=== PATIENT | male | born 1985 | race Two or more races ===

== ENCOUNTER 2023-09-10 20:32 | Inpatient (IN) | payer OTHER ==
[~2023-09-10] VITALS: Ht 175.3 cm; Wt 83.3 kg
[2023-09-10 22:26] LABS: BASOPHILS % (AUTO) 0.7 % (0.0-2.0); HEMATOCRIT 32.6 % (41-53); HEMOGLOBIN 11.1 g/dL (13.5-17.5); LYMPHOCYTES # (AUTO) 1.7 K/uL (1.0-4.8); LYMPHOCYTES % (AUTO) 44.4 % (22.0-44.0); MEAN CORPUSCULAR HEMOGLOBIN 32.1 pg (26.0-34.0); MEAN CORPUSCULAR HGB CONC 34.2 G/dL (31.0-37.0); MEAN CORPUSCULAR VOLUME 94 fL (80-100); MONOCYTES # (AUTO) 0.3 K/uL (0.1-1.0); MONOCYTES % (AUTO) 7.8 % (2.0-9.0); NEUTROPHILS # (AUTO) 1.7 K/uL (1.8-7.7); NEUTROPHILS % (AUTO) 43.1 % (40.0-70.0); PLATELET COUNT (AUTO) 163 K/uL (150-450); RED BLOOD CELL COUNT(AUTO) 3.47 MIL/uL (4.50-5.90); RED CELL DISTRIBUTION WIDTH 13.3 % (11.5-14.5); WHITE BLOOD COUNT (AUTO) 3.9 K/uL (4.5-11.0)
[2023-09-10] MEDS: ACTIVATED CHARCOAL 50 GM/240 ML SUSPENSION PO ONE (22:37)
[2023-09-10 22:43] LABS: ANION GAP 8 mmol/L (8-16); CALCIUM, TOTAL 9.3 mg/dL (8.8-10.5); CARBON DIOXIDE 29 mmol/L (22-29); CHLORIDE 102 mmol/L (98-107); CREATININE 0.89 mg/dL (0.60-1.30); GLOMERULAR FILTR. RATE CALC > 60 mL/min (>60); GLUCOSE,RANDOM 73 mg/dL (70-110); POTASSIUM 4.1 mmol/L (3.5-5.1); SODIUM SERUM 139 mmol/L (136-145); UREA NITROGEN, BLOOD 19 mg/dL (7-18)
[2023-09-10 22:49] LABS: ALANINE AMINOTRANSFERASE 23 U/L (12-78); ALBUMIN 3.5 g/dL (3.4-5.0); ALKALINE PHOSPHATASE 51 U/L (46-116); ASPARTATE AMINOTRANSFERASE 18 U/L (15-37); BILIRUBIN,TOTAL 0.3 mg/dL (0.1-1.0); TOTAL PROTEIN, SERUM 6.7 g/dL (6.4-8.2)
[2023-09-10 22:52] LABS: ACETAMINOPHEN < 10 mcg/mL (10-30)
[2023-09-10 23:00] LABS: ALCOHOL, BLOOD (SERUM) < 3 mg/dL (0-10)
[2023-09-10 23:05] LABS: SALICYLATE 0.8 mg/dL (2.8-20.0)
[2023-09-11] MEDS ORDERED: ONDANSETRON HCL 4 MG/2 ML VIAL IVP PRN (01:00)
[2023-09-11 02:16] LABS: COVID AG,FIA SOURCE NASAL SWAB
[2023-09-11 02:44] LABS: SARS-COV2 (COVID) ANTIGEN,FIA Negative (Negative)
[2023-09-11] MEDS: SODIUM CHLORIDE 0.9% 1,000 ML IV SCH (02:48)
[2023-09-11 03:52] VITALS: BP 100/64; PULSE 49; RESP 18; TEMP 97.7
[2023-09-11 07:55] VITALS: BP 103/58; PULSE 51; RESP 18; TEMP 97.8
[2023-09-11 08:10] LABS: ACETAMINOPHEN < 2 mcg/mL (10-30); ALANINE AMINOTRANSFERASE 20 U/L (12-78); ALBUMIN 3.1 g/dL (3.4-5.0); ALKALINE PHOSPHATASE 46 U/L (46-116); ASPARTATE AMINOTRANSFERASE 17 U/L (15-37); BILIRUBIN,TOTAL 0.4 mg/dL (0.1-1.0); TOTAL PROTEIN, SERUM 6.2 g/dL (6.4-8.2)
[2023-09-11] MEDS: DOCUSATE SODIUM 100 MG CAPSULE PO SCH (09:00)
[2023-09-11 11:12] LABS: ALANINE AMINOTRANSFERASE 21 U/L (12-78); ALKALINE PHOSPHATASE 41 U/L (46-116); ASPARTATE AMINOTRANSFERASE 17 U/L (15-37); BILIRUBIN,TOTAL 0.5 mg/dL (0.1-1.0); TOTAL PROTEIN, SERUM 5.9 g/dL (6.4-8.2)
[2023-09-11 11:13] LABS: ACETAMINOPHEN < 2 mcg/mL (10-30)
[2023-09-11 11:45] VITALS: BP 105/58; PULSE 53; RESP 18; TEMP 97.5
[2023-09-11 15:25] LABS: ACETAMINOPHEN < 2 mcg/mL (10-30); ALANINE AMINOTRANSFERASE 21 U/L (12-78); ALBUMIN 3.2 g/dL (3.4-5.0); ALKALINE PHOSPHATASE 47 U/L (46-116); ASPARTATE AMINOTRANSFERASE 17 U/L (15-37); BILIRUBIN,TOTAL 0.4 mg/dL (0.1-1.0); TOTAL PROTEIN, SERUM 6.4 g/dL (6.4-8.2)
[2023-09-11] MEDS: PARoxetine HCL 20 MG TABLET PO SCH (17:08)
[2023-09-11 21:54] VITALS: BP 84/51; PULSE 49; RESP 18; TEMP 98.4
[2023-09-11] MEDS: OLANZapine 10 MG TABLET PO SCH (22:29)
[2023-09-11 22:34] LABS: ALBUMIN 3.2 g/dL (3.4-5.0); BILIRUBIN,DIRECT 0.1 mg/dL (0.00-0.20); BILIRUBIN,TOTAL 0.3 mg/dL (0.1-1.0); TOTAL PROTEIN, SERUM 6.5 g/dL (6.4-8.2)
[2023-09-12 01:02] VITALS: BP 87/56; PULSE 51; RESP 18; TEMP 97.8
[2023-09-12 04:31] VITALS: BP 107/68; PULSE 74; RESP 18; TEMP 97.6
[2023-09-12 06:50] LABS: EOSINOPHILS % (AUTO) 3.8 % (1.0-6.0); HEMOGLOBIN 10.9 g/dL (13.5-17.5); LYMPHOCYTES # (AUTO) 1.8 K/uL (1.0-4.8); LYMPHOCYTES % (AUTO) 53.7 % (22.0-44.0); MEAN CORPUSCULAR HGB CONC 35.3 G/dL (31.0-37.0); MEAN CORPUSCULAR VOLUME 94 fL (80-100); MONOCYTES # (AUTO) 0.3 K/uL (0.1-1.0); MONOCYTES % (AUTO) 8.4 % (2.0-9.0); NEUTROPHILS # (AUTO) 1.1 K/uL (1.8-7.7); NEUTROPHILS % (AUTO) 33.1 % (40.0-70.0); PLATELET COUNT (AUTO) 129 K/uL (150-450); RED BLOOD CELL COUNT(AUTO) 3.31 MIL/uL (4.50-5.90); RED CELL DISTRIBUTION WIDTH 13.2 % (11.5-14.5); WHITE BLOOD COUNT (AUTO) 3.3 K/uL (4.5-11.0)
[2023-09-12 07:05] LABS: ANION GAP 6 mmol/L (8-16); CALCIUM, TOTAL 8.8 mg/dL (8.8-10.5); CARBON DIOXIDE 28 mmol/L (22-29); CHLORIDE 106 mmol/L (98-107); CREATININE 0.82 mg/dL (0.60-1.30); GLOMERULAR FILTR. RATE CALC > 60 mL/min (>60); GLUCOSE,RANDOM 81 mg/dL (70-110); POTASSIUM 4.2 mmol/L (3.5-5.1); SODIUM SERUM 140 mmol/L (136-145); UREA NITROGEN, BLOOD 16 mg/dL (7-18)
[2023-09-12 09:42] VITALS: BP 93/60; PULSE 56; RESP 18
[2023-09-12 16:28] VITALS: BP 91/49; PULSE 44; RESP 18; TEMP 98.3
[2023-09-12] MEDS ORDERED: SODIUM CHLORIDE 0.9% 500 ML IV ONE (16:35)
[2023-09-12] MEDS: SODIUM CHLORIDE 0.9% 500 ML IV ONE ×2 (16:37→18:02)
[2023-09-12 19:33] VITALS: BP 106/53; PULSE 54; RESP 16; TEMP 98.3
[2023-09-13] VITALS (8 sets, daily range): BP systolic 87–112; BP diastolic 43–69; PULSE 40–65; RESP 16–18; TEMP 97.6–98.1
[2023-09-14 00:12] VITALS: BP 91/52; PULSE 44; RESP 18; TEMP 97.8
[2023-09-14 03:10] VITALS: BP 97/58; PULSE 46; RESP 18; TEMP 97.7
[2023-09-14 07:45] VITALS: BP 89/55; PULSE 44; RESP 18; TEMP 97.9
[2023-09-14 11:32] VITALS: BP 95/49; PULSE 48; RESP 18; TEMP 98.1
[2023-09-14 18:29] LABS: ALCOHOL, URINE DRUG SCREEN NEGATIVE (NEGATIVE); AMPHET/METH SCREEN,URINE NEGATIVE (NEGATIVE); BARBITURATE SCREEN, URINE NEGATIVE (NEGATIVE); BENZODIAZEPINES SCREEN,URINE NEGATIVE (NEGATIVE); CANNABINOID SCREEN,URINE NEGATIVE (NEGATIVE); COCAINE SCREEN,URINE NEGATIVE (NEGATIVE); METHADONE SCREEN, URINE NEGATIVE (NEGATIVE); OPIATE SCREEN,URINE NEGATIVE (NEGATIVE); PHENCYCLIDINE SCREEN,URINE NEGATIVE (NEGATIVE)
[2023-09-14 18:55] VITALS: BP 104/59; PULSE 42; RESP 20; TEMP 98
[2023-09-14 20:54] VITALS: BP 103/57; PULSE 49; RESP 19; TEMP 98.1
[2023-09-15 00:26] VITALS: BP 102/59; PULSE 44; RESP 18; TEMP 98.3
[2023-09-15 05:01] VITALS: BP 109/69; PULSE 96; RESP 18; TEMP 98.1
[2023-09-15 08:56] VITALS: BP 108/66; PULSE 53; RESP 18; TEMP 98.1
[2023-09-15 11:32] VITALS: BP 107/49; PULSE 62; RESP 18; TEMP 97.9
[2023-09-15] MEDS: MIDODRINE HCL 5 MG TABLET PO SCH (13:56)
[2023-09-15 16:08] VITALS: BP 106/55; PULSE 49; RESP 19; TEMP 98
[2023-09-15 20:23] VITALS: BP 101/59; PULSE 46; RESP 19; TEMP 98.4
[2023-09-16 00:55] VITALS: BP 114/56; PULSE 48; RESP 19; TEMP 98.1
[2023-09-16 04:29] VITALS: BP 105/65; PULSE 44; RESP 18; TEMP 98.2
[2023-09-16 08:30] VITALS: BP 105/58; PULSE 50; RESP 18; TEMP 98
[2023-09-16 11:30] VITALS: BP 110/64; PULSE 53; RESP 18; TEMP 98.1
[2023-09-16] MEDS: MIDODRINE HCL 5 MG TABLET PO SCH (15:54)
[2023-09-16 15:58] VITALS: BP 99/61; PULSE 44; RESP 18; TEMP 97.8
[2023-09-16 19:34] VITALS: BP 108/62; PULSE 55; RESP 18; TEMP 98
[2023-09-17] VITALS (10 sets, daily range): BP systolic 101–113; BP diastolic 56–67; PULSE 47–83; RESP 18–20; TEMP 97.9–98.1
[2023-09-18 04:15] VITALS: BP 102/60; PULSE 48; RESP 18; TEMP 98.3
[2023-09-18 07:32] VITALS: BP 116/67; PULSE 48; RESP 18; TEMP 97.8
[2023-09-18 10:42] VITALS: BP 95/45; PULSE 48; RESP 18; TEMP 97.8
[2023-09-18 16:04] VITALS: BP 91/45; PULSE 44; RESP 18; TEMP 97.9
[2023-09-18 20:30] VITALS: BP 103/54; PULSE 50; RESP 18; TEMP 98.1
[2023-09-19 00:09] VITALS: BP 112/62; PULSE 45; RESP 18; TEMP 97.9
[2023-09-19 04:20] VITALS: BP 107/51; PULSE 48; RESP 18; TEMP 98.1
[2023-09-19 07:45] VITALS: BP 112/66; PULSE 64; RESP 19; TEMP 98.1
[2023-09-19 11:38] VITALS: BP 107/65; PULSE 62; RESP 20; TEMP 98.2
[2023-09-19 17:18] VITALS: BP 97/56; PULSE 52; RESP 18; TEMP 98.1
== END 2023-09-19 19:15 | DRG 918 ==
LOC: EMS 20:36 → 5N 09-11 02:45 → 6S 09-11 12:15 → 5S 09-12 18:45
PROVIDERS: ADMIT Internal Medicine; ATTEND Internal Medicine
DX: T39.1X2A Poisoning by 4-Aminophenol derivatives, intentional self-harm, initial encounter (principal); K76.6 Portal hypertension; D61.818 Other pancytopenia; F32.9 Major depressive disorder, single episode, unspecified; E86.0 Dehydration; F25.1 Schizoaffective disorder, depressive type; R79.89 Other specified abnormal findings of blood chemistry; Z20.822 Contact with and (suspected) exposure to COVID-19; Y92.89 Other specified places as the place of occurrence of the external cause; J45.909 Unspecified asthma, uncomplicated; I95.9 Hypotension, unspecified; R00.1 Bradycardia, unspecified; Z82.3 Family history of stroke
CPT/HCPCS: 80048; 80053; 80076; 80307; 83735; 84436; 84443; 85025; 93005; 93306; 99285; G0480; G0481; J7030; J7040

== ENCOUNTER 2023-10-06 21:29 | Inpatient (IN) | payer OTHER ==
[~2023-10-06] VITALS: Ht 175.3 cm; Wt 83.0 kg
[2023-10-06 22:35] LABS: BASOPHILS % (AUTO) 0.5 % (0.0-2.0); HEMATOCRIT 35.7 % (41-53); HEMOGLOBIN 12.1 g/dL (13.5-17.5); LYMPHOCYTES # (AUTO) 2.2 K/uL (1.0-4.8); LYMPHOCYTES % (AUTO) 35.4 % (22.0-44.0); MEAN CORPUSCULAR HEMOGLOBIN 31.6 pg (26.0-34.0); MEAN CORPUSCULAR HGB CONC 33.8 G/dL (31.0-37.0); MEAN CORPUSCULAR VOLUME 94 fL (80-100); MONOCYTES # (AUTO) 0.4 K/uL (0.1-1.0); MONOCYTES % (AUTO) 5.8 % (2.0-9.0); NEUTROPHILS # (AUTO) 3.4 K/uL (1.8-7.7); NEUTROPHILS % (AUTO) 55.3 % (40.0-70.0); PLATELET COUNT (AUTO) 203 K/uL (150-450); RED BLOOD CELL COUNT(AUTO) 3.81 MIL/uL (4.50-5.90); RED CELL DISTRIBUTION WIDTH 13.9 % (11.5-14.5); WHITE BLOOD COUNT (AUTO) 6.1 K/uL (4.5-11.0)
[2023-10-06 22:46] LABS: ANION GAP 5 mmol/L (8-16); CALCIUM, TOTAL 8.4 mg/dL (8.8-10.5); CARBON DIOXIDE 34 mmol/L (22-29); CHLORIDE 102 mmol/L (98-107); CREATININE 1.02 mg/dL (0.60-1.30); GLOMERULAR FILTR. RATE CALC > 60 mL/min (>60); GLUCOSE,RANDOM 85 mg/dL (70-110); POTASSIUM 3.8 mmol/L (3.5-5.1); SODIUM SERUM 141 mmol/L (136-145); UREA NITROGEN, BLOOD 22 mg/dL (7-18)
[2023-10-06] MEDS: SODIUM CHLORIDE 0.9% 1,000 ML IV ONE (22:48)
[2023-10-06 22:52] LABS: ALANINE AMINOTRANSFERASE 16 U/L (12-78); ALBUMIN 3.4 g/dL (3.4-5.0); ALKALINE PHOSPHATASE 50 U/L (46-116); ASPARTATE AMINOTRANSFERASE 12 U/L (15-37); BILIRUBIN,TOTAL 0.3 mg/dL (0.1-1.0); TOTAL PROTEIN, SERUM 6.8 g/dL (6.4-8.2)
[2023-10-06 23:09] LABS: ACETAMINOPHEN < 2 mcg/mL (10-30)
[2023-10-06 23:18] LABS: ALCOHOL, BLOOD (SERUM) < 3 mg/dL (0-10)
[2023-10-06 23:48] LABS: SALICYLATE 0.4 mg/dL (2.8-20.0)
[2023-10-07] VITALS (7 sets, daily range): BP systolic 90–130; BP diastolic 45–74; PULSE 49–71; RESP 18–20; TEMP 97.6–98.3
[2023-10-07] MEDS ORDERED: ONDANSETRON HCL 4 MG/2 ML VIAL IVP PRN
[2023-10-07 00:32] LABS: COVID AG,FIA SOURCE NASAL SWAB
[2023-10-07] MEDS: HEPARIN SODIUM,PORCINE 5,000 UNITS/ML VIAL SQ SCH (00:35)
[2023-10-07 01:11] LABS: APPEARANCE,URINE CLEAR (CLEAR); BILIRUBIN,URINE NEGATIVE (NEGATIVE); COLOR,URINE LIGHT YELLOW (YELLOW); GLUCOSE, URINE (UA) NEGATIVE (NEGATIVE); KETONES,URINE NEGATIVE (NEGATIVE); LEUKOCYTE ESTERASE ,URINE NEGATIVE (NEGATIVE); NITRATE,URINE NEGATIVE (NEGATIVE); OCCULT BLOOD,URINE NEGATIVE (NEGATIVE); PROTEIN,URINE NEGATIVE (NEGATIVE); SPECIFIC GRAVITIY, URINE 1.024 (1.003-1.030); UROBILINOGEN,URINE <=1.0 mg/dL (<=1.0)
[2023-10-07 01:15] LABS: ALCOHOL, URINE DRUG SCREEN NEGATIVE (NEGATIVE); AMPHET/METH SCREEN,URINE NEGATIVE (NEGATIVE); BARBITURATE SCREEN, URINE NEGATIVE (NEGATIVE); BENZODIAZEPINES SCREEN,URINE NEGATIVE (NEGATIVE); CANNABINOID SCREEN,URINE NEGATIVE (NEGATIVE); COCAINE SCREEN,URINE NEGATIVE (NEGATIVE); METHADONE SCREEN, URINE NEGATIVE (NEGATIVE); OPIATE SCREEN,URINE NEGATIVE (NEGATIVE); PHENCYCLIDINE SCREEN,URINE NEGATIVE (NEGATIVE)
[2023-10-07 01:26] LABS: SARS-COV2 (COVID) ANTIGEN,FIA Negative (Negative)
[2023-10-07] MEDS ORDERED: SODIUM CHLORIDE 0.9% 1,000 ML IV ONE (05:30)
[2023-10-07] MEDS: SODIUM CHLORIDE 0.9% 1,000 ML IV ONE (06:18)
[2023-10-07 07:34] LABS: BASOPHILS % (AUTO) 0.9 % (0.0-2.0); EOSINOPHILS % (AUTO) 3.8 % (1.0-6.0); HEMOGLOBIN 11.1 g/dL (13.5-17.5); LYMPHOCYTES # (AUTO) 2.3 K/uL (1.0-4.8); LYMPHOCYTES % (AUTO) 50.9 % (22.0-44.0); MEAN CORPUSCULAR HEMOGLOBIN 32.3 pg (26.0-34.0); MEAN CORPUSCULAR HGB CONC 34.8 G/dL (31.0-37.0); MEAN CORPUSCULAR VOLUME 93 fL (80-100); MONOCYTES # (AUTO) 0.3 K/uL (0.1-1.0); MONOCYTES % (AUTO) 7.1 % (2.0-9.0); NEUTROPHILS # (AUTO) 1.7 K/uL (1.8-7.7); NEUTROPHILS % (AUTO) 37.3 % (40.0-70.0); PLATELET COUNT (AUTO) 178 K/uL (150-450); RED BLOOD CELL COUNT(AUTO) 3.44 MIL/uL (4.50-5.90); RED CELL DISTRIBUTION WIDTH 13.7 % (11.5-14.5); WHITE BLOOD COUNT (AUTO) 4.5 K/uL (4.5-11.0)
[2023-10-07 08:26] LABS: ALANINE AMINOTRANSFERASE 14 U/L (12-78); ALBUMIN 2.8 g/dL (3.4-5.0); ALKALINE PHOSPHATASE 47 U/L (46-116); ANION GAP 7 mmol/L (8-16); ASPARTATE AMINOTRANSFERASE 14 U/L (15-37); BILIRUBIN,TOTAL 0.4 mg/dL (0.1-1.0); CALCIUM, TOTAL 7.8 mg/dL (8.8-10.5); CARBON DIOXIDE 28 mmol/L (22-29); CHLORIDE 104 mmol/L (98-107); CREATININE 0.88 mg/dL (0.60-1.30); GLOMERULAR FILTR. RATE CALC > 60 mL/min (>60); GLUCOSE,RANDOM 69 mg/dL (70-110); POTASSIUM 3.7 mmol/L (3.5-5.1); SODIUM SERUM 139 mmol/L (136-145); TOTAL PROTEIN, SERUM 5.8 g/dL (6.4-8.2); UREA NITROGEN, BLOOD 18 mg/dL (7-18)
[2023-10-07] MEDS: DOCUSATE SODIUM 100 MG CAPSULE PO SCH (08:39)
[2023-10-08] VITALS: BP 115/67; PULSE 59; RESP 18; TEMP 98.1
[2023-10-08 04:16] VITALS: BP 123/70; PULSE 57; RESP 20; TEMP 98.2
[2023-10-08 08:01] LABS: BASOPHILS % (AUTO) 0.7 % (0.0-2.0); EOSINOPHILS % (AUTO) 4.9 % (1.0-6.0); HEMATOCRIT 32.1 % (41-53); HEMOGLOBIN 11.1 g/dL (13.5-17.5); LYMPHOCYTES # (AUTO) 2.2 K/uL (1.0-4.8); LYMPHOCYTES % (AUTO) 51.3 % (22.0-44.0); MEAN CORPUSCULAR HGB CONC 34.5 G/dL (31.0-37.0); MEAN CORPUSCULAR VOLUME 93 fL (80-100); MONOCYTES # (AUTO) 0.3 K/uL (0.1-1.0); MONOCYTES % (AUTO) 7.7 % (2.0-9.0); NEUTROPHILS # (AUTO) 1.5 K/uL (1.8-7.7); NEUTROPHILS % (AUTO) 35.4 % (40.0-70.0); PLATELET COUNT (AUTO) 161 K/uL (150-450); RED BLOOD CELL COUNT(AUTO) 3.46 MIL/uL (4.50-5.90); RED CELL DISTRIBUTION WIDTH 13.9 % (11.5-14.5); WHITE BLOOD COUNT (AUTO) 4.3 K/uL (4.5-11.0)
[2023-10-08 08:10] LABS: ANION GAP 8 mmol/L (8-16); CALCIUM, TOTAL 8.2 mg/dL (8.8-10.5); CARBON DIOXIDE 27 mmol/L (22-29); CHLORIDE 103 mmol/L (98-107); CREATININE 0.86 mg/dL (0.60-1.30); GLOMERULAR FILTR. RATE CALC > 60 mL/min (>60); GLUCOSE,RANDOM 81 mg/dL (70-110); POTASSIUM 3.8 mmol/L (3.5-5.1); SODIUM SERUM 138 mmol/L (136-145); UREA NITROGEN, BLOOD 17 mg/dL (7-18)
[2023-10-08 08:11] VITALS: BP 128/88; PULSE 100; RESP 18; TEMP 98
[2023-10-08 08:38] LABS: THYROID STIMULATING HORMONE 0.77 uIU/mL (0.36-3.74)
[2023-10-08 11:39] VITALS: BP 102/58; PULSE 66; RESP 18; TEMP 98.1
[2023-10-08] MEDS ORDERED: MIRT-149 PO (12:37)
[2023-10-08] MEDS ORDERED: MIDO5TAB29 PO (12:37)
[2023-10-08] MEDS ORDERED: LACT10SO10 PO (12:38)
[2023-10-08] MEDS ORDERED: OMEP20 PO (12:39)
[2023-10-08] MEDS ORDERED: OLAN20TA20 PO (12:39)
[2023-10-08] MEDS ORDERED: MOME13HF11 IH (12:40)
[2023-10-08] MEDS ORDERED: OLAN10VI IM (12:41)
[2023-10-08] MEDS ORDERED: BUPR1FIL7 SL (12:42)
[2023-10-08] MEDS ORDERED: TOLN28CR6 TP (12:50)
[2023-10-08] MEDS ORDERED: LEVAHFA IH (12:51)
[2023-10-08 17:39] VITALS: BP 118/75; PULSE 52; RESP 20; TEMP 98
== END 2023-10-08 18:40 | DRG 918 ==
LOC: EMS 21:29 → 5N 23:49
PROVIDERS: ADMIT Internal Medicine; ATTEND Internal Medicine
DX: T42.1X2A Poisoning by iminostilbenes, intentional self-harm, initial encounter (principal); E87.3 Alkalosis; R00.1 Bradycardia, unspecified; Z20.822 Contact with and (suspected) exposure to COVID-19; J45.909 Unspecified asthma, uncomplicated; B19.20 Unspecified viral hepatitis C without hepatic coma; F25.1 Schizoaffective disorder, depressive type; Z79.899 Other long term (current) drug therapy; Z91.51 Personal history of suicidal behavior; Y92.89 Other specified places as the place of occurrence of the external cause
CPT/HCPCS: 80048; 80053; 80307; 81003; 83735; 84443; 85025; 93005; 93306; 99285; G0480; G0481; J1644; J7030